=== PATIENT | female | born 1965 ===

== ENCOUNTER 2018-05-13 14:51 | Outpatient (CLI) | payer OTHER ==
--- NOTE | 2018-05-13 15:41 | MMO ---
FILMS COMPARED: The present examination has been compared to prior imaging studies performed at [facility] on 04/23/2014, 05/06/2014, 12/20/2015 and 12/28/2015, and at [facility] on 09/06/2009, 11/29/2011, 12/12/2011 and 12/15/2012. MAMMOGRAM FINDINGS: The breasts are heterogeneously dense, which could obscure a lesion on mammography. There is a stable round mass with circumscribed margins seen in the right breast. The mass was shown to be a cyst on ultrasound. There are no suspicious masses, calcifications or areas of architectural distortion. IMPRESSION: STABLE MASS IN THE RIGHT BREAST IS BENIGN. A ROUTINE FOLLOW-UP MAMMOGRAM IN 1 YEAR IS RECOMMENDED. ACR BI-RADS Category 2 - Benign finding
== END 2018-05-13 14:52 | disposition home or self-care (01) ==
LOC: BICMAMMO 14:51
PROVIDERS: ATTEND Obstetrics & Gynecology
DX: N63.10 Unspecified lump in the right breast, unspecified quadrant (principal); N64.59 Other signs and symptoms in breast
CPT/HCPCS: 77066; G0279